=== PATIENT | male | born 1985 | race Caucasian/White ===

== ENCOUNTER 2016-05-10 03:35 | Emergency (ER) | payer OTHER ==
[2016-05-10 07:28] LABS: HEMOGLOBIN 14.9 gm/dl (14.0-17.5); RED BLOOD COUNT 4.82 M/UL (4.20-5.50); WHITE BLOOD COUNT 5.9 K/UL (4.5-11.0)
[2016-05-10 07:53] LABS: BUN/CREATININE RATIO 24 (0-10)
== END 2016-05-10 09:20 | disposition home or self-care (01) ==
LOC: ER1 03:35
PROVIDERS: Specialist/Technologist Athletic Trainer
DX: J20.9 Acute bronchitis, unspecified (principal); H54.42 Blindness, left eye, normal vision right eye; I10 Essential (primary) hypertension; F17.200 Nicotine dependence, unspecified, uncomplicated; Z79.899 Other long term (current) drug therapy
CPT/HCPCS: 36415; 71010; 80053; 80307; 85025; 85379; 93005; 99284

== ENCOUNTER → 2016-05-14 | Outpatient (CLI) | payer OTHER | LOC: RAD 11:56 | DX: M54.2 Cervicalgia (principal); R53.1 Weakness; M79.602 Pain in left arm ==